=== PATIENT | male | born 1945 | race Caucasian/White ===

== ENCOUNTER 2018-06-13 09:28 | Inpatient (IN) | payer OTHER, BC ==
[~2018-06-13] VITALS: Ht 180.3 cm; Wt 72.1 kg
[2018-06-13 09:29] VITALS: BP 135/61
[2018-06-13 09:50] LABS: ABSOLUTE NEUTROPHILS 3.5 thou/uL (1.4-8.2); BASOPHILS 0.6 % (0.0-2.0); EOSINOPHILS 1.2 % (0.0-3.0); HEMATOCRIT 40.2 % (42.0-52.0); HEMOGLOBIN 13.6 gm/dL (14.0-18.0); LYMPHOCYTES 25.6 % (24.0-44.0); MCH 31.5 pg (26.0-34.0); MCHC 33.8 g/dL (28.0-37.0); MONOCYTES 5.9 % (1.0-8.0); PLATELET COUNT 188 thou/uL (150-400); POLYS 66.7 % (36.0-66.0); RBC 4.32 mil/uL (4.50-6.00); RDW 14.2 % (10.5-14.5); WBC 5.3 thou/uL (4.0-11.0)
[2018-06-13 09:58] LABS: CALCIUM 8.9 mg/dL (8.5-10.1); CREATININE 0.9 mg/dL (0.7-1.3); POTASSIUM 4.5 mmol/L (3.5-5.1)
[2018-06-13 14:20] VITALS: BP 125/61
[2018-06-13 14:23] VITALS: BP 110/51
--- NOTE | 2018-06-13 15:47 | NUR ---
ASSUMED CARE AT 1500, SHIFT ASSESSMENT DONE, ADMISSION COMPLETED. NPO SINCE THIS AM. CAME IN WITH RIGHT HIP FRACTURE. LEFT FOR SURGERY AT 1545.
[2018-06-13 21:10] VITALS: BP 118/57
--- NOTE | 2018-06-13 22:10 | O ---
[facility] [place] [address] OPERATIVE REPORT Name: GISELECARISSA Choi Room #: 423-1 ADM IN M.R.#: [id number] Admission: 06/13/18 ������������������ Attend Phys: Live Rollins MD Discharge: ������������������ Date of : 43 Report #: [id number] THIS REPORT FOR: //name// CC: Samson Rollins DATE OF SERVICE: 06/13/2018 SERVICE: Orthopedics. FACILITY: [place]. SURGEON: Gallo Irizarry M.D. SCRAP CRANE OPERATOR: None. PREOPERATIVE DIAGNOSIS: Displaced right femoral neck fracture status post fall. POSTOPERATIVE DIAGNOSIS: Displaced right femoral neck fracture status post fall. PROCEDURE: Cemented right hip hemiarthroplasty. ANESTHESIA: General. COMPLICATIONS: Calcar fracture treated with a cerclage cable. DRAINS: None. SPECIMENS: None. FINDINGS: 1. [employer] size 15 standard offset Synergy cemented stem with +8 neck and 54 mm head. A cable was utilized around the calcar. 2. Intraoperative x-ray to confirm appropriate implant positioning with the trial. 3. Hip was stable in extension and external rotation, position of sleep & at the 90/90, internal rotation position and leg lengths were equal on palpation. HISTORY AND INDICATIONS: The patient is a 72-year-old gentleman who sustained what sounds like a rather significant fall while visiting a friend's house. He apparently tripped on some exposed hardware during remodeling, fell forward, landing on the hardwood floor and sustained a right hip femoral neck fracture. He was admitted for definitive treatment. Risks, benefits, alternatives and indication of the surgery discussed with him in detail as well as with his . [facility] [address] [address] OPERATIVE REPORT Name: CARISSA JAQUEZ Room #: 423-1 ADM IN M.R.#: [id number] Admission: 06/13/18 ������������������ Attend Phys: Live Rollins MD Discharge: ������������������ Date of : 43 Report #: [id number] Risks include but not limited to pain, bleeding, infection, injuring nerves or blood vessels, persistent pain despite surgical intervention, failure of the prosthesis, need for further surgery including revision as well as complications related to anesthesia such as stroke, heart attack, pulmonary complications, thromboembolic disease and . Despite these risks, he wished to proceed. PROCEDURE IN DETAIL: After right lower extremity was correctly identified in the preoperative holding area as the operative extremity, the patient was taken to the operating room where general anesthesia was induced without complication. He was turned into lateral decubitus position with right side up, left side down padded appropriately. Prophylactic antibiotics were administered at appropriate time. Right leg was then prepped and draped in a sterile fashion. Timeout procedure performed. Standard posterolateral approach was made to the right hip and dissection taken down through the fascia and the trochanteric bursa was identified and was reflected off the backside of the femur. Piriformis was identified, tagged and was retracted. The capsule was exposed and then the U-shaped capsulotomy was created. The labrum was protected. There was a very vertical femoral neck fracture that was displaced. He has a very large femoral head and there was some difficulty just getting the femoral head out due to the large size of it and the significant coverage provided by the acetabulum and we were able to deliver the femoral head in the size of 54 trial and this fit well. We selected this as our femoral head component size. The short external rotators were reflected off of the backside of the femur allowing exposure of the calcar and additional femoral neck cut was required in order to have appropriate height cut based on the preoperative x-rays and templating off of the uninjured left side. The entry reamer was then utilized as well as a lateralizing reamer and then, the canal was eventually reamed up to a size 15 reamer and then the broaches were utilized to broach the femur initially to a 14. I brought an intraoperative x-ray and the 14 was loose proximally. He has atypical shape to his femur with very broad proximal femur and so the 14 was loose. We went up to the 15 and then tried the 15 with several options in terms of the neck length as well as the offset, felt like the standard offset was initially not providing adequate offset, tried the high offset. This did put excessive tension over the abductors and then while we were trying to dislocate after the intraoperative x-ray with the high offset, there was a calcar fracture that occurred. At that point, stopped, remove the high offset neck, kept the 15 broach in the femur and then passed the cerclage cable around the proximal femur repositioning it beneath the vastus lateralis in appropriate position and then tensioning it and securing it with the trial broach in place with the calcar and now securely cabled with the reposition cable beneath the soft tissues laterally. The femur was stable and we utilized the calcar reamer previously to set for the collared implant and then, thoroughly irrigated the femoral canal and prepared it for the size 15 femoral component. The cement restrictor was placed and then, the femoral component was cemented into place. Because of the calcar fracture, we [facility] [address] [place] [address] OPERATIVE REPORT Name: CARISSA JAQUEZ Room #: 423-1 [facility] IN M.Steph.#: [id number] Admission: 06/13/18 ������������������ Attend Phys: Live Rollins MD Discharge: ������������������ Date of : 43 Report #: [id number] held the component securely in place until the cement fully cured and then remove the excess cement and the final component was a standard offset as that was the more appropriately sized component with the final intraoperative x-ray and stability assessment. I then trialed the +4 and the +8 neck and selected the +8 as that restored the leg lengths more appropriately and had symmetry with leg lengths. The hip was stable to extension, external rotation as well as position of sleep at the 90/90, internal rotation position with the final implant in place with a 54 head. We impacted it into position after cleaning the trunnion and then thoroughly irrigated the socket and reduced the hip. The capsule was then repaired to the posterior aspect of the greater trochanter with #2 FiberWire x 3 and then, the piriformis was repaired to the posterior capsule and piriformis fossa with a modified [place] stitch with the #2 FiberWire as well. Note that the capsule was closed over half gram of vancomycin powder and then the fascia was closed over the remaining 0.5 g of vancomycin powder with 0 Vicryl suture in limvjz-cl-bexaj fashion. The skin was then closed with 2-0 Vicryl followed by skin vasile and a sterile negative pressure dressing was then applied. The patient was placed in abduction pillow and then, he was awakened from anesthesia and taken to recovery room in stable condition. There were no complications and all counts were recorded as correct. ��������������������������������������������� <ELECTRONICALLY SIGNED> ���������������������������������������� By: Gallo Irizarry MD ��������������������������������������������� 06/13/18 2210 [id number] Gallo Irizarry MD /nt
--- NOTE | 2018-06-14 04:00 | NUR ---
PT RETURNED SX 2104. VSS. PT ALERT AND ORIENTED. ASSESSMENT COMPLETED. PT DENEIS N/V AT THIS TIME. PT REPORTS MINIMAL PAIN, SEE EMAR. ORDERS IMPLEMENTED. ABDUCTOR PILLOW IN PLACE. OXYGEN VIA NC AT 2L FOR COMFORT. VITOR DRESSING TO R HIP, DRESSING C/D/I. NEUROCHECKS TO R LE GOOD. PT CALL LIGTH AND PERSONAL BELONGINGS WITHIN REACH. WILL CONTINUE POC UNTIL EOS.
[2018-06-14 04:36] VITALS: BP 129/65
[2018-06-14 06:01] LABS: ABSOLUTE NEUTROPHILS 6.9 thou/uL (1.4-8.2); BASOPHILS 0.1 % (0.0-2.0); MCH 31.7 pg (26.0-34.0); MCHC 34.2 g/dL (28.0-37.0); MCV 92.7 fL (80.0-100.0); MONOCYTES 7.8 % (1.0-8.0); PLATELET COUNT 173 thou/uL (150-400); POLYS 86.1 % (36.0-66.0); RBC 3.45 mil/uL (4.50-6.00); RDW 13.9 % (10.5-14.5); WBC 8.1 thou/uL (4.0-11.0)
[2018-06-14 06:05] LABS: HEMOGLOBIN 10.9 gm/dL (14.0-18.0)
[2018-06-14 06:22] LABS: CALCIUM 7.9 mg/dL (8.5-10.1); CREATININE 1.1 mg/dL (0.7-1.3); MAGNESIUM 1.8 mg/dL (1.8-2.4); POTASSIUM 4.4 mmol/L (3.5-5.1)
[2018-06-14 07:00] VITALS: BP 109/55
--- NOTE | 2018-06-14 13:43 | NUR ---
ASSESSMENT-PT LIVES AT HOME WITH HIS WHO HAD A TKA DONE 08/2017. PT WALKS ON HIS OWN AND DOES HIS OWN ADLS. THEY HAVE A 2 WHEELED WALKER, CANE AND BSC AND SHOWER BENCH AT HOME IF NEEDED. PT HAS NOT HAD ANY HH SERVICES. THEY HAVE 2 SONS - [place] AND INDEPENDENCE. HE DOES THE CLEANING, THEY SHARE THE COOKING AND SHE DOES THE LAUNDRY. PT HAS GONE TO OUTPT THERAPY IN THE PAST. WILL AWAIT THERAPY REC. FOLLOWING TO ASSIST WITH DC PLANNING.
--- NOTE | 2018-06-14 16:55 | EKG ---
[address] [place] [address] ELECTROCARDIOGRAM REPORT Name: CARISSA JAQUEZ Room #: 423-1 ADM IN M.R.#: [id number] ������������������ Admission: 06/13/18 ������������������ Attend Phys: Live Rollins MD Discharge: ������������������ Date of : 43 Report #: [id number] ����������������������������������������������������������������� [id number] THIS REPORT FOR: //name// [facility] ED Test Date: 2018-06-13 Test Time: 12:22:07 Pat Name: CARISSA JAQUEZ Department: Room: [facility] Gender: M Lokie Engineer: NASRIN : 1945 Requested By: Gallo Peña Order Number: [id number] MD: Mick Cotto Measurements Intervals [place] Rate: 80 P: 63 AK: 119 QRS: 86 QRSD: 107 T: 39 QT: 379 QTc: 438 Interpretive Statements Sinus rhythm Borderline short AK interval Compared to ECG 07/18/2006 04:15:51 Sinus tachycardia no longer present Electronically Signed On 06-14-2018 16:55:07 CDT by Mick Cotto [email or web address] ��������������������������������������������� <ELECTRONICALLY SIGNED> ���������������������������������������� By: Mick Cotto MD, [facility] ��������������������������������������������� 06/14/18 1655 D: 03/1221 21 Mick Cotto MD, FACC /EPI
[2018-06-14 17:15] VITALS: BP 124/55
[2018-06-14 20:12] VITALS: BP 132/58
[2018-06-15 06:21] LABS: HEMATOCRIT 29.6 % (42.0-52.0); HEMOGLOBIN 10.1 gm/dL (14.0-18.0); MCH 31.4 pg (26.0-34.0); MCV 92.4 fL (80.0-100.0); RBC 3.21 mil/uL (4.50-6.00); RDW 14.1 % (10.5-14.5); WBC 10.2 thou/uL (4.0-11.0)
--- NOTE | 2018-06-15 06:29 | NUR ---
PATIENT CARES WERE ASSUMED AT APPROX 1999. PATIENT WAS ASSESSED AND MEDS WERE PASSED. PATIENT HAD A HARD TIME GETTING COMFORTABLE. CALLED TO CHANGE OUT HIS BED FOR A FLOOR BED TO GET HIS LEG HIGHER. LYN WAS D/C AT 0600. PATIENT HAD SEVERAL COMPLAINTS THROUGH THE NIGHT. LAST COMPLAINT WAS THE TELEPHONE. HOURLY ROUNDING WAS DONE. PATIENT APPERED TO BE SLEEPING MOST OF THE TIMES AT ROUNDS. PATIENT CONTINUES TO TAKE ONLY TYLENOL FOR PAIN. THE BED IS IN LOW LOCKED POSITION AND THE WAY PATIENT HAS REQUESTED. BED ALARM IS ON.
--- NOTE | 2018-06-15 10:21 | NUR ---
on-going assessment: cm reviewed chart and met with pt at the bedside. CM DISCUSSED HH VS SNF WITH PATIENT. PT STATING HE DOES NOT WANT TO GO TO A SNF AND PREFERS TO GO BACK HOME STATNIG HIS IS VERY SUPPORTIVE AND SO IS HIS FAMILY. PT STATES SHE PREFERS TO GO HOME WITH HH BUT WILL SEE HOW HE IS DOING IN THE NEXT DAY. PT STATING HE IS STILL HAVING QUITE A BIT OF PAIN. CM DICUSSED BENEFITS OF HH VS SNF AND PT PREFERS TO GO HOME WITH HH. CM WILL FOLLOW UP TO ASSIST NEEDED.
--- NOTE | 2018-06-15 11:33 | NUR ---
ASSUMED PATIENT AND CARES AT 0715, PATIENT WOKE LYING IN BED REQUESTING TO USE THE BATHROOM, NURSE ASSISTED PATIENT UP TO STANDING PER WALKER TO THE BSC, NURSE THEN ASSISTED PATIENT BACK TO BED, PATIENT A&OX4, PAIN 6/10 AT THIS TIME, LEFT HAND IV INTACT AND PATENT WITH NS@100ML/HR INFUSING, VITOR DRESSING INTACT TO RIGHT HIP, O2@2L/NC, FALL PRECAUTIONS IN PLACE, PERSONAL BELONGINGS AND CALL LIGHT IN REACH, WILL CONTINUE TO MONITOR
--- NOTE | 2018-06-15 18:09 | NUR ---
THIS RN AGREES WITH ASSESSMENTS MADE BY KATHLEEN PASCUAL
[2018-06-15 19:35] VITALS: BP 138/71
[2018-06-15 20:00] VITALS: BP 138/71
--- NOTE | 2018-06-16 04:38 | NUR ---
PATIENTS CARES WERE ASSUMED AT SHIFT CHANGE.PATIENT WAS ASSESSED ANDMEDS WERE PASSED. PATIENT ONCE AGAIN BECAME UNHAPPY WITH THE BED HE IS IN. PATIENT WANTED THIS NURSE TO KEEP HIM UP HIGH AND HAD TO SEND IN CHARGE NURSE AND CALL THE HOUSE SUPERVISER TO GET THE BED DOWN IN A RESONABLE POSITION. HOURLY ROUNDING WAS DONE AND PATIENT DID APPER TO BE SLEEPING MOST OF THIS SHIFT. THE BED IS IN A LOW AND LOCKED POSITION, THE BED ALARM IS ON.
[2018-06-16 05:55] LABS: HEMATOCRIT 26.6 % (42.0-52.0); HEMOGLOBIN 9.1 gm/dL (14.0-18.0); MCH 31.6 pg (26.0-34.0); MCHC 34.1 g/dL (28.0-37.0); MCV 92.7 fL (80.0-100.0); RBC 2.87 mil/uL (4.50-6.00); RDW 14.2 % (10.5-14.5); WBC 8.2 thou/uL (4.0-11.0)
[2018-06-16 07:40] VITALS: BP 128/68
--- NOTE | 2018-06-16 08:31 | NUR ---
ASSUMED PATIENT AND CARES AT 0715, PATIENT WOKE IN BED REQUESTING TO USE BATHROOM, PATIENT UP X1 ASSIST PER WALKER WITH TRANSFERS, SBA WITH AMBULATION, LEFT HAND IV INTACT AND PATENT FLUIDS INFUSING, VITOR DRESSING TO RIGHT HIP C/D/I, PAIN 06/04, PERSONAL BELONGINGS AND CALL LIGHT IN REACH, WILL CONTINUE TO MONITOR
[2018-06-16] MEDS ORDERED: PROTONIX40 M1 PO (13:59)
[2018-06-16] MEDS ORDERED: TRAMADOL 50 MG50 MG PO (13:59)
[2018-06-16] MEDS ORDERED: MIRALAX17 GM PO (13:59)
[2018-06-16] MEDS ORDERED: SENNA-TIME S T1 EACH PO (13:59)
[2018-06-16] MEDS ORDERED: ENOXAPARIN40 MG/0.1 SUBQ (13:59)
[2018-06-16] MEDS ORDERED: ACETAMINOPHEN325 M1 PO (13:59)
--- NOTE | 2018-06-16 14:53 | NUR ---
PATIENT DISCHARGED TO INPATIENT REHAB RM 510 FROM SICU 224, PATIENT AWARE OF DISCHARGE, PERSONAL BELONGINGS PACKED AND WILL BE TRANSFERRED WITH PATIENT, PATIENT REFUSED TO GET DRESSED, REPORT GIVEN TO RECEIVING NURSE, DISCHARGE PACKET PRINTED AND WILL BE SENT WITH PATIENT, TRANSPORT TO TAKE PATIENT AND BELONGINGS TO
--- NOTE | 2018-06-16 16:15 | NUR ---
ON-GOING ASSESSMENT: CM REVIEWED CHART. 5N CONSULT WAS PLACED FOR PATIENT PRIOR TO DISCHARGING BACK HOME. PT IS AGREEABLE TO GO TO 5N. 5N DID EVAL AND PATIENT IS APPROPRIATE FOR ACUTE REHAB STAY. CM REQUESTED THEY CLARIFY WITH DR. CARRERO PATIENT WILL BE A BUNDLE. PER 5N THEY CHECK WITH PHYSICIAN AND HE IS AGREEABLE WITH PATIENT TO GO TO 5N. CM SPOKE WITH PATIENTS TO UPDATE.
== END 2018-06-16 15:06 | DRG 469 ==
LOC: ER 09:28 → EROBS 10:55 → 4E 10:55 → SICU 06-14 20:01 → ENTRNSPT 06-16 14:52 → EDTRNSPTSTS 06-16 14:54 → SICU 06-16 15:06
PROVIDERS: Emergency Medicine; Nurse Practitioner; Orthopaedic Surgery Sports Medicine; ADMIT Internal Medicine
PROC: 0SRR019 Replacement of Right Hip Joint, Femoral Surface with Metal Synthetic Substitute, Cemented, Open Approach (ICD-10-PCS; principal; 2018-06-13)
DX: S72.001A Fracture of unspecified part of neck of right femur, initial encounter for closed fracture (principal); E43 Unspecified severe protein-calorie malnutrition; D62 Acute posthemorrhagic anemia; K59.00 Constipation, unspecified; W01.0XXA Fall on same level from slipping, tripping and stumbling without subsequent striking against object, initial encounter; M21.151 Varus deformity, not elsewhere classified, right hip; G62.9 Polyneuropathy, unspecified; E55.9 Vitamin D deficiency, unspecified; Z85.46 Personal history of malignant neoplasm of prostate; Z98.41 Cataract extraction status, right eye; Y93.89 Activity, other specified; Y92.89 Other specified places as the place of occurrence of the external cause; Y99.8 Other external cause status; Z47.89 Encounter for other orthopedic aftercare
CPT/HCPCS: 10084; 15002; 50010; 50101; 50382; 50414; 53000; 53078; 53369; 55430; 56524; 56528; 56530; 57095; 57103; 62110; 62900; 70005

== ENCOUNTER 2018-06-16 13:23 | Inpatient (IN) | payer OTHER, BC ==
[~2018-06-16] VITALS: Ht 180.3 cm; Wt 74.4 kg
--- NOTE | ~2018-06-16 | PLAN ---
[facility] [place] [address] REHAB UNIT PLAN OF CARE Name: CARISSA JAQUEZ Room #: 515-P ADM IN M.R.#: [id number] Admission: 06/16/18 ������������������ Attend Phys: Norris Prince MD Discharge: ������������������ Date of : 43 Report #: [id number] THIS REPORT FOR: //name// CC: Norris Wilkerson DATE OF SERVICE: 06/19/2018 PROGRESS NOTE AND OVERALL PLAN OF CARE SUBJECTIVE: The patient was seen back today in followup. He notes concern with his bladder problems. He did have a lot of problems voiding before, but was not needing to be catheterized. He notes that the pain is an issue with his hip and that he has some difficulty as far as starting his stream, which was a premorbid. He thinks that the tramadol, which he is on now, may have contributed and wants to try to be off the scheduled tramadol. I talked with Dr. Rollins and changed the tramadol to p.r.n. as per his request. Right hip incision appears dry. There is no calf swelling. He has been involved in therapies with transfers at a contact guard, gait contact guard 100 feet front-wheeled walker. Stairs are min assist, lower body dressing is mod assist. He is still on nasal prong O2, 2 liters, was not on oxygen premorbidly. ASSESSMENT: 1. Right femoral neck fracture, status post hemiarthroplasty, weightbearing as tolerated. 2. Urinary retention, still needing to be catheterized. Discussion with Dr. Rollins. The patient is on Flomax. The tramadol is being changed to p.r.n. trying to utilize Tylenol. Hoping with increased function that he will have better voiding. 3. Continued use of nasal prong O2. Hopefully, we will be able to wean off his oxygen. 4. History of prostate cancer. 5. Deep venous thrombosis prophylaxis. 6. Past history of Harris raul surgery for scoliosis. 7. Premorbid peripheral neuropathy. PLAN: The overall plan of care is based on the preadmission screen, post-admission physician evaluation and information garnered from therapy assessments. 1. Estimated length of stay should be fairly short. We were thinking 5-7 days total, but will need to see how he does with voiding and hopefully we can wean off his O2 and will need to increase his function more. 2. Medical prognosis is reasonably good. 3. Anticipated interventions includes the interdisciplinary acute inpatient rehabilitation program. 4. Anticipated functional outcomes would be for [place] [address] REHAB UNIT PLAN OF CARE Name: GISELECARISSA Steph Room #: 515-P [facility] IN M.R.#: [id number] Admission: 06/16/18 ������������������ Attend Phys: Norris Prince MD Discharge: ������������������ Date of : 43 Report #: [id number] independent with transfers, mobility, ADLs and improvement with Pulmonary and bladder issues as noted above. Goal is to be independent at a walker level. 5. Discharge destination would be back home, where he lives with his . 6. Expected therapy by discipline includes PT and OT, 1-1/2 hours per day each five days a week throughout the duration of the acute inpatient rehabilitation stay. ��������������������������������������������� ���������������������������������������� By: ��������������������������������������������� [id number] Norris Prince MD /nt
[2018-06-16] MEDS ORDERED: PROTONIX40 M1 PO (13:59)
[2018-06-16] MEDS ORDERED: ENOXAPARIN40 MG/0.1 SUBQ (13:59)
[2018-06-16] MEDS ORDERED: TRAMADOL 50 MG50 MG PO (13:59)
[2018-06-16] MEDS ORDERED: ACETAMINOPHEN325 M1 PO (13:59)
[2018-06-16] MEDS ORDERED: MIRALAX17 GM PO (13:59)
[2018-06-16] MEDS ORDERED: SENNA-TIME S T1 EACH PO (13:59)
[2018-06-16 15:20] VITALS: BP 136/68
--- NOTE | 2018-06-16 19:30 | NUR ---
ASSUMED CARE AT APPROX 1500. PATIENT A/O X4. DENIES PAIN. VSS. DRESSING TO RIGHT HIP C/D/I, VITOR DRESSING IN PLACE. PATIENT EVALUATED BY PHYSICAL THERAPY. CONSENTS SIGNED. ADMISSION ASSESSMENT COMPLETE. PATIENT ORIENTED TO ROOM AND REHAB UNIT. MED ORDERS FAXED TO PHARMACY. PATIENT ATE DINNER. USED CALL LIGHT APPROPRIATELY. FALL PRECAUTIONS IN PLACE. EDUCATED ABOUT HIP PRECAUTIONS. UP X1 GB AND WALKER TO TOILET. COMPLETED HYGIENE INDEPENDENTLY. RESTING IN BED AT CHANGE OF SHIFT.
[2018-06-16 19:55] VITALS: BP 130/64
--- NOTE | 2018-06-17 03:01 | NUR ---
PIVOT TRANSFER TO STAND, PATIENT IS CAREFUL TO NOT CROSS LEGS. UP TO TOILET THEN SITS TO VOID SMALL AMOUNT. STATES HUGE BM ON 06/15, DECLINES SENNA AND TAKES A SIP OF MIRALAX WITH THE IDEA THAT IT IS BEST TAKEN IN THE MORNING WITH APPLE JUICE. PLEASANT. REFUSES SCDs, INFORMED OF DAILY LOVENOX FOR DECREASED RISK OF DVT. PATIENT IS ACCEPTING OF AND AWARE OF LOVENOX USE SINCE HIS HAD IT BID FOR 3 WEEKS AFTER HER HIP REPLACEMENT. REFUSES ABDUCTOR WEDGE, UNDERSTANDS HIP PRECAUTIONS AND DOES NOT THINK HE CROSSES HIS LEGS IN HIS SLEEP.
--- NOTE | 2018-06-17 04:30 | NUR ---
UP TO TOILET AND UMABLE TO VOID, DISTRESSED ABOUT THIS AND HIS SEDDEN INCREASE IN LEG PAIN AFTER BEING UP TEN MINUTES TRYING. BLADDER SCAN REVEALS 600. ORDER FOR STRAIGHT CATH WITH 500 CC RESULTING. NOW WOULD LIKE HIS FULL DOSE OF TRAMADOL FOR PAIN STILL AT 4/10 AFTER SETTLING BACK IN BED. ALSO WANTS TO TAKE MIRALAX AND SENNA THAT HE HAD ESSENTIALLY DECLINED LAST NIGHTBY TAKING ONLY ONE SIP OF MIRALAX IN APPLE JUICE. RIGHT CALF AND HEEL ELEVATED UP ON A BATH BLANKET.
[2018-06-17 07:55] VITALS: BP 132/69
[2018-06-17 09:43] LABS: HEMATOCRIT 26.9 % (42.0-52.0); HEMOGLOBIN 9.1 gm/dL (14.0-18.0); MCH 31.4 pg (26.0-34.0); MCHC 33.8 g/dL (28.0-37.0); MCV 92.9 fL (80.0-100.0); RBC 2.9 mil/uL (4.50-6.00); RDW 14.4 % (10.5-14.5); WBC 7.5 thou/uL (4.0-11.0)
[2018-06-17 09:52] LABS: CALCIUM 8.3 mg/dL (8.5-10.1); CREATININE 0.8 mg/dL (0.7-1.3); POTASSIUM 4.1 mmol/L (3.5-5.1)
--- NOTE | 2018-06-17 11:53 | NUR ---
ASSUMED CARE AT APPROX 0700. REPORTS SLEEP PATIENT A/O X4. HAS HIP PAIN RATES PAIN 5/10, NIGHT RN GAVE TRAMADOL AT 5AM AND PT REQUEST ANOTHER PRN TRAMADOL NOW. DISCUSSED ABOUT IT IS MORE BENEFIT FOR HIM TO BE ON SCHEULED TRAMADOL. DRESSING TO RIGHT HIP C/D/I, VITOR DRESSING IN PLACE. OT GAVE HIM SPONGE BATH. REASSESSMENT COMPLETE. PT HAD URINARY RETENTION AND NOT ON FLOMAX. NOTIFIED DR. FERNANDO RECEIVED ORDER FOR FLOMAX, STRAIGHT CATH BID PRN IF BS GREATER THAN 500CC AND DR. FERNANDO WILL CHANGE TRAMADOL PRN TO SCHEDULE. FALL PRECAUTION IN PLACE. CALL LIGHT APPROPRIATELY. EDUCATED ABOUT HIP PRECAUTIONS. UP X1 GB AND WALKER TO TOILET. PT UP IN DINNING AND EATING LUNCH AT THIS MOMENT. WILL CONTINUE TO MONITOR.
[2018-06-17 19:15] VITALS: BP 116/43
--- NOTE | 2018-06-17 21:15 | NUR ---
WALKED IN HALLWAY 100 FT WITH WALKER, THEN SAT ON TOILET FOR VOID ATTEMPT AND WAS UPSET THAT HE HAD ALREADY VOIDED A LARGE AMOUNT. PATIENT SAT ON TOILET 15 MINUTES AND CONTINUED TO DRIBBLE THE ENTIRE TIME. SMALL BM WELL, SO HE DECLINED THE EVENING SENNA AND MIRALAX, DRANK 4 OUNCE OF APPLE JUICE. CHANGED INTO FRESH UNDERWEAR AND HOSPITAL GOWN FOR THE NIGHT. ABLE TO WASH AND WIPE HIMSELF, ALFA-CARE FRONT AND BACK WHILE STANDING. AGREES WITH TRAMADOL Q 6 HOURS AND WILL START WITH A DOSE NOW. VITOR DRESSING CDI WITH TUBING INTACT AND PATENT TO MINIPUMP
--- NOTE | 2018-06-18 04:00 | NUR ---
UP TO TOILET, UNABLE TO VOID. STRAIGHT CATHED FOR 450 CC CORIN URINE. TRAMADOL 100 MG GIVEN WITH PLAN TO CONTINUE GIVING Q 6 HOURS. PAIN OF 2/10 INCREASES TO 4/10 WITH THE ACTIVITY OF GOING TO AND SITTING ON THE TOILET.
[2018-06-18 07:40] VITALS: BP 132/60
--- NOTE | 2018-06-18 17:31 | NUR ---
ASSUMED CARE AT APPROX 0715. PATIENT A/O X4. C/O PAIN IN RIGHT HIP. MEDICATED FOR PAIN Q6H IN TIME WITH THERPAY. PATIENT PARTICIPATED IN PT, AMBULATED X1 ASSIST GB AND WALKER. CUES FOR HIP PRECAUTIONS. VITOR DRESSING TO RIGHT HIP C/D/I, VITOR DEVICE ACTIVE. BLADDER SCANNED AT 1000, 207 ML SCANNED, PATIENT DENIED DISCOMFORT AND NEED TO VOID. PATIENT ATTEMPTED TO VOID AGAIN, SCANNED AGAIN AT 1200, 420 ML RESIDUAL. REFUSED CATH UNTIL AFTER THERAPY, CATH'D AT APPROX 1330 - 450 ML OUT. FALL PRECAUTIONS IN PLACE. PATIENT CALLS APPROPRIATELY FOR ASSISTANCE. RESTING IN BED. WILL CONTINUE TO MONITOR.
[2018-06-18 19:30] VITALS: BP 136/59
--- NOTE | 2018-06-18 23:29 | NUR ---
PT ASSESSMENT COMPLETED AND VSS. MEDS GIVEN ORDERED AND WELL TOLERATED. FALL PRECAUTIONS IN PLACE. UP TO THE BATHROOM WITH ASST/GAIT/WALKER AND HIP PRECAUTIONS. BLADDER SCAN WNL AT THIS TIME. RIGHT HIP DSGS DRY AND INTACT. WILL CONTINUE TO MONITOR FREQUENTLY.
--- NOTE | 2018-06-19 06:13 | NUR ---
THIS AM PTS PVR BLADDER SCAN WAS GREATER THEN 600. STRAIGHT CATH COMPLETED ORDERED. 700 OUT. WILL CONTINUE TO MONITOR.
--- NOTE | 2018-06-19 08:00 | NUR ---
HAVING BREAKFAST IN BED THIS AM. STATED PAIN TO RT HIP IS 3 ON 1-10 SCALE. OXYGEN ON 2L NC. UP WITH WALKER AND GAIT BELT WITH TRANSFERS AND AMBULATION.
[2018-06-19 08:30] VITALS: BP 146/60
--- NOTE | 2018-06-19 09:15 | NUR ---
ADM TYLENOL 325MG 2 TABS PO FOR PAIN TO RT HIP. PT WORRIED ABOUT TRAMADOL IF IT IS AFFECTING HIS ABILITY TO URINATE. NO URGE TO VOID, AND RETAINING URINE.
--- NOTE | 2018-06-19 09:50 | NUR ---
BLADDER SCANNED. 473 IN BLADDER. PT GETTING READY TO WORK WITH THERAPY. STATED HE WILL TRY TO WALK AND MAYBE OPEN UP TO VOID. OXYGEN WAS OFF WHEN PT WENT TO BATHROOM TO HAVE BM. SAT 85% ON ROOM AIR.
--- NOTE | 2018-06-19 10:15 | NUR ---
OXYGEN RECHECKED WITH THERAPY AND ON 2L NC. OXYGEN SAT IS 95%.
--- NOTE | 2018-06-19 13:00 | NUR ---
AFTER WORKING WITH THERAPY, BLADDER SCANNED AMOUNT 421ML. PT WANTED TO WAIT TO BE STRAIGHT UNTIL STRAIGHT CATHED A LITTLE BIT. HE THINKS THAT HE MIGHT HAVE DRIBBLED A LITTLE WHEN WALKING.
--- NOTE | 2018-06-19 14:59 | NUR ---
ADM TYLENOL 325MG 2 TABS PO FOR PAIN TO RT HIP OF 3 ON 1-10 SCALE. PT UP TO BATHROOM FOR X4 BM AT THIS TIME. PT ABLE TO WALK WITH WALKER AND TO RAISE LEGS INTO BED WITHOUT ASSISTANCE.
--- NOTE | 2018-06-19 15:15 | NUR ---
PT UP TO HAVE BM AND ALSO VOIDED. CHECKED BLADDER VIA SCANNER, 348ML POST VOID.
--- NOTE | 2018-06-19 17:52 | NUR ---
PT UP TO VOID AND HAD SMALL BM.
[2018-06-19 19:40] VITALS: BP 120/58
--- NOTE | 2018-06-20 06:53 | NUR ---
UP TO TOILET WITH GAIT BELT, WALKER, AND STANDBY ASSIST. UNABLE TO VOID THIS SHIFT, STRAIGHT CATHED TWICE. LARGE INCONTINENT BM DUE TO URGENCY. C/O FREQUENT BELCHING, PROTONIX GIVEN AT THIS TIME WITH MOHIT BURGER. ICE TO GROIN, VITOR DRESSING TO RIGHT HIP CDI.
[2018-06-20 08:15] VITALS: BP 111/67
--- NOTE | 2018-06-20 08:24 | NUR ---
ASSUME PT CARE AT 0700. VSS ON ROOM AIR. SAT 92% ON RA. HR CAN BE HIGH AT TIME. ENCOURAGED DEEP BREATHING. PT SAID HE HAD 5X BM LAST NIGHT. DENIES MIRALAX AND SENNA SCHEUDULE THIS AM. PT C/O INDIGESTION, BELCHING. NOTIFIED MONSE AND OBTAINED ORDER FOR TUMB PRN. DISCUSSION PLANS WITH PT, PT REFUSED FLOMAX THIS AM. ENVEN HE HAS URINARY RETENTION. ENCOURAGED PT TO DISCUSS WITH ASSEMBLER BODY. FALL PRECAUTION IN PLACE. WILL CONTINUE TO MONITOR.
--- NOTE | 2018-06-20 13:38 | NUR ---
team meeting, recommendation : dcp 06/22 with [facility] ( pt, ot, nursing ), teach for clean self cath. will cont following as needed for dc needs. pt requested hospital beds and not recommendation per therapy.
--- NOTE | 2018-06-20 15:26 | NUR ---
LEFT MESSAGE WITH DR. ALISE PRICE'S NURSE, REGARDING OUR PLAN TO DC HOME ON 06/22, DUE TO URINARY RETENTION ISSUES. REQEUSTED A CALL BACK TO VERIFY THAT THEY RECEIVED THE MESSAGE AND ARE OK WITH THIS PLAN.
--- NOTE | 2018-06-20 16:52 | NUR ---
RECEIVED REPORT FROM [employer]. PT ARRIVEDD TO [facility] AT 5N AROUND 1115. PT REPORTS SHE HAD ROUGH DRIVE. PATIENT A/O X4. FORGETFUL. DENIES PAIN. VSS. DRESSING TO RIGHT HIP C/D/I, VITOR DRESSING IN PLACE. PATIENT EVALUATED BY PHYSICAL THERAPY. CONSENTS SIGNED. ADMISSION ASSESSMENT COMPLETE. PATIENT ORIENTED TO ROOM AND REHAB UNIT. MED ORDERS FAXED TO PHARMACY. PATIENT ATE DINNER. USED CALL LIGHT APPROPRIATELY. FALL PRECAUTIONS IN PLACE. EDUCATED ABOUT HIP PRECAUTIONS. UP X1 GB AND WALKER TO TOILET. COMPLETED HYGIENE INDEPENDENTLY. RESTING IN BED AT CHANGE OF SHIFT.
[2018-06-20 19:02] LABS: URINE BILIRUBIN NEGATIVE (Negative); URINE BLOOD NEGATIVE (Negative); URINE CLARITY CLEAR; URINE COLOR YELLOW; URINE GLUCOSE-RANDOM* NEGATIVE (Negative); URINE KETONES NEGATIVE (Negative); URINE LEUKOCYTES-REFLEX NEGATIVE (Negative); URINE NITRITE-REFLEX NEGATIVE (Negative); URINE PROTEIN (DIPSTICK) NEGATIVE (Negative)
[2018-06-20 19:50] VITALS: BP 149/64
--- NOTE | 2018-06-21 04:29 | NUR ---
AGAIN UNABLE TO VOID AT MIDNIGHT. STRAIGHT CATHED FOR 600 CC CLEAR YELLOW URINE. PATIENT THREADED CATHETER AFTER INSERTED AND AGREED THAT IT MIGHT BE MORE COMFORTABLE TO DO HIMSELF THAN TO HAVE SOMEONE ELSE DO IT. STATES HE IS OK WITH STRAIGHT CATHING AT HOME IF NECESSARY BY THE TIME HE GOES HOME BUT STATES THAT HIS MIGHT HAVE TO DO IT FOR HIM. HIS PAIN IS MANAGEABLE, BUT HE C/O INDIGESTION, LEG CRAMPING, DRY MOUTH, AND, OF COURSE, THE URINARY RETENTION. MYLICON AND TUMS PROVIDED SOME SYMPTOMATIC RELIEF
[2018-06-21 08:00] VITALS: BP 124/53
--- NOTE | 2018-06-21 12:00 | NUR ---
ASSUME PT CARE AT 0700. REPORTS SLEPT GOOD LAST NIGHT. VSS ON ROOM AIR. SAT 98% ON RA. HR 101 MAY BE D/T ANXIETY ENCOURAGED DEEP BREATHING. PT HAS URINARY RETENSION. ASSISTED TO BATHROOM THIS AM HAD GOOD BM URINATE SOME. BS HAS 363CC NOW. PT SAID HE WILL TRY TO GO TO BATHROOM LATER. C/O RIGHT HIP PAIN DURING THERAPY GAVE PRN TYLENOL. GRACE TIRED NOW. SLEEP SOUNDLY IN BED. WILL GO TO [place] LATER WITH GROUP. DENIES ABD DISCOMFORT TODAY. OT GAVE PT SHOWER THIS AM. VITOR DRESSING INTACT, NOTICED GREEN LIGHT IS OFF. FALL PRECAUTION IN PLACE. WILL CONTINUE TO MONITOR.
[2018-06-21 14:16] VITALS: BP 124/53
[2018-06-21 19:24] VITALS: BP 138/53
--- NOTE | 2018-06-21 21:49 | NUR ---
PT ASSESSMENT COMPLETED AND VSS. MEDS GIVEN ORDERED AND WELL TOLERATED. FALL PRECAUTIONS IN PLACE. UP TO THE BATHROOM WITH ASST/GAIT/WALKER. STEADY. DRSG ON R HIP DRY AND INTACT. PT DENIES PAIN AT THIS TIME. SLEEPING WELL. WILL CONTINUE TO MONITOR FREQUENTLY.
--- NOTE | 2018-06-22 06:04 | NUR ---
PT BLADDER SCAN THIS MORNING WAS WNL. PVR WAS 138. PT HAS BEEN STRAIGHT CATH A FEW TIMES OVER THE PAST SEVERAL DAYS. PLAN IS FOR PT TO GO HOME TODAY AT 10 AM. NO PLAN IN PLACE AT THIS TIME FOR HOME STRAIGHT CATH. PT STATES THAT HE HAS HAD TO STRAIGHT CATH IN THE PAST AND KNOWS HOW TO DO IT. WILL TALK TO DAY RN ABOUT THIS CONCERN ESPECIALLY WITH D/C PLAN FOR THIS MORNING.
--- NOTE | 2018-06-22 07:15 | NUR ---
Pt PARTICIPATED IN COMMUNITY [facility]INTEGRATION ON 06/21/18 WITH OT. PLEASE REFER TO OT DOCUMENTATION
[2018-06-22] MEDS ORDERED: ASPIR 8181 MG PO (08:14)
[2018-06-22] MEDS ORDERED: FLOMAX0.4 MG PO (08:14)
[2018-06-22] MEDS ORDERED: PROTONIX40 M1 PO (08:14)
[2018-06-22] MEDS ORDERED: ERGOCALCIF50000 UNIT PO (08:14)
[2018-06-22] MEDS ORDERED: VITAMIN B-12500 MCG PO (08:14)
[2018-06-22] MEDS ORDERED: IBUPROFEN 400400 M2 PO (08:16)
[2018-06-22 08:24] VITALS: BP 134/55
[2018-06-22 09:15] VITALS: BP 124/53
--- NOTE | 2018-06-22 09:47 | NUR ---
ASSUMED CARES AT 0700. PT AWAKE, ALERT AND ORIENTED*4. DENIES PAIN AT THIS TIME. RIGHT HIP DRESSING REMAINS DRY AND INTACT, MILD BRUISING REMAINS ON RIGHT KNEE BACK AND AROUND THE INCISION. VITALS REMAINED STABLE. PT VOIDING REGULARLY. PT UP WITH 1 PERSON MIN ASSIST, GAITBELT AND WALKER, WEIGHT BEARING TOLERATED ON RLE. PT DISCHARGE TEACHING COMPLETED AND PT VERBALISED UNDERSTANDING. Q1H VISUAL CHECKS. CALL LIGHT WITHIN REACH. FALL PRECAUTIONS IN PLACE
[2018-06-22 10:55] VITALS: BP 124/53
--- NOTE | 2018-06-22 10:56 | NUR ---
NOTIFIED [facility] OF DISCHARGE TODAY THEY WILL NOTIFY PT. OF TIME OF VISITS.
--- NOTE | 2018-06-23 09:32 | H ---
[facility] [place] [address] HISTORY AND PHYSICAL Name: CARISSA JAQUEZ Room #: 515-P [facility] IN M.R.#: [id number] Admission: 06/16/18 ������������������ Attend Phys: Norris Prince MD Discharge: 06/22/18 ������������������ Date of : 41 Report #: [id number] THIS REPORT FOR: //name// CC: Norris Gutierrezy Rhea DATE OF SERVICE: 06/17/2018 HISTORY AND PHYSICAL/POST-ADMISSION PHYSICIAN EVALUATION: HISTORY OF PRESENT ILLNESS: This is a 72-year-old white male originally admitted to [facility]. 06/13/2018 after a fall landing on his right hip with immediate pain and inability to ambulate. He was found to have good femoral neck fracture and underwent right hip hemiarthroplasty on 06/13/2018. He is allowed weightbearing as tolerated. Postop, he had a drop in hemoglobin, initially requiring 1 liter O2. He also had some mild postop confusion, thought likely related to pain medication. He has been admitted now for acute in-hospital inpatient rehabilitation. He did have some urinary retention requiring catheterization during the evening. PAST MEDICAL HISTORY: Includes borderline diabetes mellitus, history of prostate CA, scoliosis. PAST SURGICAL HISTORY: Includes prostate surgery and Harris rods for scoliosis. MEDICATIONS: Please see the full medication listing. This includes vitamins, herbals, and supplements per report. He is on Lovenox for DVT prophylaxis. ALLERGIES: No known drug allergies. HABITS: No history of alcohol or tobacco abuse. FAMILY HISTORY: Noncontributory. SOCIAL HISTORY: He lives in a house with his . Seven steps to enter then, a split level house, 6 stairs up, 6 stairs down with unilateral handrails. He did not utilize an assistive device, was independent with ADLs and shares IADLs with his . He still drives. REVIEW OF SYSTEMS: Did not offer any current complaints of chest pain, shortness of breath, abdominal discomfort. He did have voiding difficulties last evening requiring catheterization. He does have some pain involving that right hip as expected and has tramadol. No chills, headache. No other focal extremity pain complaints. [facility] [address] [place] [address] HISTORY AND PHYSICAL Name: CARISSA JAQUEZ Room #: 515-P [facility] IN M.R.#: [id number] Admission: 06/16/18 ������������������ Attend Phys: Norris rPince MD Discharge: 06/22/18 ������������������ Date of : 41 Report #: [id number] PHYSICAL EXAMINATION: GENERAL: This is a 72-year-old white male, sleepy, but respond, was seen earlier. Last recorded temperature 97.4, pulse 107, respirations 18, blood pressure 132/69. HEENT: Facies are symmetric. CHEST: Sounded clear to auscultation. CARDIAC: Regular rate and rhythm. ABDOMEN: Bowel sounds positive, nontender. GENITOURINARY AND RECTAL: Deferred. Functional range of motion of both upper extremities with strength grade 4-/5. DTRs are trace to 1. LOWER EXTREMITIES: Hip is dressed. There is no calf swelling, favors moving that right lower extremity stump. EXTREMITIES: Strength is probably a grade 4-/5. Left lower extremity strength appeared to be 4/5. Tone appeared to be intact. No calf swelling. The nursing staff has been elevating the right heel on a bath blanket under the right calf. Functionally, he has been min assist for basic transfers, ambulating a short distance min assist with a front-wheeled walker. ASSESSMENT: This is a 72-year-old white male with the following problem list: 1. Right femoral neck fracture, status post hemiarthroplasty, weightbearing as tolerated. 2. Acute blood loss anemia as expected. 3. Urinary retention, warranting catheterization. 4. History of prostate cancer. 5. Deep venous thrombosis prophylaxis. 6. Past history of Harris raul surgery for scoliosis. 7. Premorbid peripheral neuropathy. PLAN: He is admitted for acute in-hospital inpatient rehabilitation. From a post-admission physician evaluation perspective, there are no relevant changes since the preadmission screening. Please see the above review of prior and current medical and functional conditions and comorbidities. Please see the patient's previous and current functional status. As far as risk of complications, the patient has multiple medical comorbidities as noted above. Initial plan of care involves the interdisciplinary acute inpatient rehabilitation program with goal of maximizing the patient's functional independence, so that he can hopefully return back to his prior living situation. Measurable functional goals would be for him to become modified independent with transfers, mobility and ADLs. So that he can return back to the home setting. Goal would be for him to return back home at a walker level. Prognosis is reasonably good. ESTIMATED LENGTH OF STAY: Approximately 5 days to 7 days, pending progress. [address] [address] HISTORY AND PHYSICAL Name: CARISSA JAQUEZ Room #: 515-P [facility] IN M.R.#: [id number] Admission: 06/16/18 ������������������ Attend Phys: Norris Prince MD Discharge: 06/22/18 ������������������ Date of : 41 Report #: [id number] Potential barriers would include medical comorbidities and decreased functional status. ��������������������������������������������� <ELECTRONICALLY SIGNED> ���������������������������������������� By: Norris Prince MD ��������������������������������������������� 06/23/18 0932 0945 1024 Norris Prince MD /nt
--- NOTE | 2018-06-24 15:52 | HC ---
[facility] [place] [address] CONSULTATION Name: CARISSA JAQUEZ Room #: 515-P [facility] IN M.R.#: [id number] Admission: 06/16/18 ������������������ Attend Phys: Norris Prince MD Discharge: 06/22/18 ������������������ Date of : 41 Report #: [id number] THIS REPORT FOR: //name// CC: Norris Prince Samson Solisgwynsalomón DATE OF SERVICE: 06/18/2018 ATTENDING PHYSICIAN: Norris Prince MD. CREATIVE DEVELOPER: Hipolito Rm, PhD. CLINICAL PRESENTATION: The patient is a 72-year-old white male admitted to [facility] for comprehensive inpatient rehabilitation program. The patient sustained a fall on 06/13/2018, landing on his right hip. He was unable to ambulate and was diagnosed with a femoral neck fracture and underwent a right hip hemiarthroplasty. The patient had a drop in his hemoglobin and has required O2. There had been some mild postoperative confusion, possibly related to pain medication. His past history is positive for prostate surgery and Harris rods for scoliosis. The patient's assessment on the rehab unit included a right femoral neck fracture, status post hemiarthroplasty, weightbearing as tolerated, acute blood loss anemia, urinary retention warranting catheterization, history of prostate cancer, deep venous thrombosis prophylaxis, history of Harris raul surgery for scoliosis and premorbid peripheral neuropathy. A complete description of his medical condition and history along with medications can be found in his medical record. Neuropsychological consultation was requested to provide assistance in the assessment of cognitive and emotional status and to provide recommendations and services. Prior to this most recent admission, he was living independently at home with his . He has 2 adult children. 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 He does not report a history of prior treatment for depression or anxiety. TECHNIQUES UTILIZED: Clinical interview, review of medical records, staff consultation and behavioral observation, mini mental status exam 2 standard version, clock drawing and verbal fluency assessment (letter and category). EXAMINATION FINDINGS: The patient was alert and cooperative with the assessment. He accurately described events surrounding his admission. There is no evidence of aphasia. His thoughts are logical and goal oriented. There is no evidence of thought disorder. He does not report auditory or visual hallucinations. There is no suicidal ideation. [address] [address] CONSULTATION Name: GISELECARISSA Steph Room #: 515-P [facility] IN .R.#: [id number] Admission: 06/16/18 ������������������ Attend Phys: Norris Prince MD Discharge: 06/22/18 ������������������ Date of : 41 Report #: [id number] The patient described his symptoms to include longstanding sleep disturbance, difficulty with word finding and a mild degree of anxiety and depression. He is concerned about his recovery and wellbeing of his . She is going to be undergoing a knee surgery. He does not report difficulty with appetite, memory or energy level. There is no history of alcohol/drug abuse. His performance on the MMSE 2 standard version is within normal limits with a raw score of 28/30. The patient was 3/3 for initial registration, 4/5 for orientation to time, 5/[address] and 3/3 for immediate recall of 3 items after a brief time delay and distraction. He was 4/5 for serial sevens, 2/2 for naming, 1/1 for repetition, 3/3 for comprehension, he could read and follow a single command, write a sentence and copy a simple geometric design. Clock drawings within normal limits. Letter fluency was in the low range of functioning with a raw score of 15, T score of 4 and percentile rank of 16. Category fluency was in the low average range with a raw score of 31, T score 42, percentile rank of 21. Overall, total fluency was in the low average range with a raw score of 46, total score 38, percentile rank of 12. The patient reports having been independent with instrumental activities of daily living prior to this most recent medical event. He is alert and oriented with adequate immediate recall. Mild deficits are suggested in verbal fluency, which can indicate variability in executive functioning. He also reports increased anxiety, which may also interfere with higher level thought organization, planning and problem solving. DIAGNOSTIC IMPRESSION: Mild neurocognitive disorder, unspecified, without behavior disorder. Adjustment disorder with anxious mood. RECOMMENDATIONS: The patient will benefit from the use of techniques to assist in the management of anxiety. Relaxation strategies that include breathing along with reassurance will also assist his overall adjustment. Encouragement to recognize strengths and resources as well as identify success in progress since his hospitalization. Longstanding difficulty with sleep is described. He may benefit from medication to support sleep onset and maintenance. [address] [address] CONSULTATION Name: CARISSA JAQUEZ Room #: 515-P [facility] IN M.R.#: [id number] Admission: 06/16/18 ������������������ Attend Phys: Norris Prince MD Discharge: 06/22/18 ������������������ Date of : 41 Report #: [id number] Thank you very much for allowing me to provide the consultation on this patient. ��������������������������������������������� <ELECTRONICALLY SIGNED> ���������������������������������������� By: Hipolito Rm, PhD ��������������������������������������������� 06/24/18 1552 1420 1909 Hipolito Rm, PhD /nt
== END 2018-06-22 10:51 | disposition home health service (06) | DRG 536 ==
LOC: ENTRNSPT 06-22 10:31 → EDTRNSPTSTS 06-22 10:36
PROVIDERS: Nurse Practitioner Family; ADMIT Physical Medicine & Rehabilitation
DX: S72.001A Fracture of unspecified part of neck of right femur, initial encounter for closed fracture (principal); D62 Acute posthemorrhagic anemia; R33.9 Retention of urine, unspecified; G62.9 Polyneuropathy, unspecified; F43.29 Adjustment disorder with other symptoms; G31.84 Mild cognitive impairment of uncertain or unknown etiology; R53.81 Other malaise; E55.9 Vitamin D deficiency, unspecified; W18.39XA Other fall on same level, initial encounter; R32 Unspecified urinary incontinence; Z85.46 Personal history of malignant neoplasm of prostate; Z90.79 Acquired absence of other genital organ(s); Y93.89 Activity, other specified; Y92.89 Other specified places as the place of occurrence of the external cause; Y99.8 Other external cause status
CPT/HCPCS: 10112

== ENCOUNTER 2019-03-31 09:51 | Emergency (ER) | payer OTHER, BC ==
[~2019-03-31] VITALS: Ht 180.3 cm; Wt 74.8 kg
[~2019-03-31 09:51] MED LIST: ACETAMINOPHEN325 M1 PO; ASPIR 8181 MG PO; ENOXAPARIN40 MG/0.1 SUBQ; ERGOCALCIF50000 UNIT PO; FLOMAX0.4 MG PO; IBUPROFEN 400400 M2 PO; MIRALAX17 GM PO; PROTONIX40 M1 PO; SENNA-TIME S T1 EACH PO; TRAMADOL 50 MG50 MG PO; VITAMIN B-12500 MCG PO
[2019-03-31] MEDS ORDERED: OMEPRAZOLE40 MG PO (10:22)
[2019-03-31] MEDS ORDERED: SYMBICORT160 MCG/4. INH (10:23)
[2019-03-31] MEDS ORDERED: HYDROCODON-ACE1 EAC7 PO (12:19)
[2019-03-31] MEDS ORDERED: MOBIC7.5 MG PO (12:19)
[2019-03-31] MEDS ORDERED: SENNA-DOCUSATE1 EAC1 PO (12:19)
[2019-03-31 12:30] VITALS: BP 135/76
== END 2019-03-31 12:33 | disposition home or self-care (01) ==
LOC: ER 09:51
DX: S32.028A Other fracture of second lumbar vertebra, initial encounter for closed fracture (principal); Z85.46 Personal history of malignant neoplasm of prostate; X50.9XXA Other and unspecified overexertion or strenuous movements or postures, initial encounter; Y93.89 Activity, other specified; Y92.89 Other specified places as the place of occurrence of the external cause; Y99.8 Other external cause status